=== PATIENT | male | born 1940 | race Caucasian/White ===

== ENCOUNTER 2017-07-21 14:50 | Emergency (ER) | payer MEDICAID, OTHER ==
[~2017-07-21] VITALS: Ht 152.4 cm; Wt 67.0 kg
[2017-07-21 14:54] VITALS: Ht 152.4 cm; Wt 67.0 kg
--- NOTE | 2017-07-21 17:19 | ERD ---
ER Documentation Chief Complaint Date/Time DATE: 07/21/17 TIME: 17:16 Chief Complaint left eye vision loss x 3 mos HPI 77-year-old male complains of blurry vision for the last 3 months in his right eye. He has a history of cataract surgery in his left eye. Denies any history of trauma, and denies any visual field deficits, pain, discomfort, fevers, vomiting, chest pain or shortness of breath or abdominal pain . ROS All systems reviewed and are negative except as per history of present illness. PMhx/Soc History of Surgery: No Anesthesia Reaction: No Hx Neurological Disorder: No Hx Respiratory Disorders: No Hx Cardiac Disorders: No Hx Psychiatric Problems: No Hx Miscellaneous Medical Probl: No Hx Alcohol Use: No Hx Substance Use: No Hx Tobacco Use: No Smoking Status: Never smoker Physical Exam Vitals Vital Signs Date Time Temp Pulse Resp B/P Pulse Ox O2 Delivery O2 Flow Rate FiO2 07/21/17 14:54 98.1 60 18 160/83 99 Physical Exam Const: []Alert, [id number], eating chips. Head: Atraumatic Eyes: Normal Conjunctiva. Eyes are PERRLA and extraocular movements intact. There is a visible opacity in the lens in the right eye. There is no proptosis, visual acuity is diminished in the affected eye. He is able to count fingers at 8 feet. ENT: Normal External Ears, Nose and Mouth. Neck: Full range of motion..~ No meningismus. Resp: Clear to auscultation bilaterally Cardio: Regular rate and rhythm, no murmurs Abd: Soft, non tender, non distended. Normal bowel sounds Skin: No petechiae or rashes Back: No midline or flank tenderness Ext: No cyanosis, or edema Neur: Awake and alert Psych: Normal Mood and Affect Procedures/MDM Patient presents with a 3 month history of blurred vision his right eye. Physical exam is likely cataract. Signs and symptoms do not suggest orbital cellulitis, retinal detachment, retinal artery ischemia, optic neuritis, acute glaucoma. Patient would be best served by an outpatient ophthalmology evaluation and also primary care. Patient will referred to ophthalmology and primary care for further evaluation treatment. Patient shows no signs or symptoms of emergent condition or emergent signs or symptoms of serious illness. Patient is advised to recheck for new or worsening symptoms with primary doctor and ophthalmology as directed. Departure Diagnosis: Primary Impression: Blurred vision, right eye Condition: Stable Patient Instructions: Blurred Vision [facility] Usted se moreno hecho un examen mdico de control que le indica que no est en misty condicin que requiera tratamiento urgente en el Departamento de Emergencia. Un estudio ms profundo y el tratamiento de titus condicin pueden esperar sin ningn riesgo hasta que usted sea atendida/o en el consultorio de titus mdico o misty cl kindra. Es responsabilidad suya arreglar misty israel para el seguimiento del grant. MANEJO DE CONDICIONES NO URGENTES EN EL FUTURO 1) Si usted tiene un mdico de atencin primaria: Usted debera llamar a titus mdico de atencin primaria antes de venir al departamento de emergencia. Despus de las horas de consultorio, titus doctor o titus asociado/a est disponible por telfono. El mdico o enfermero de josé miguel en el servicio telefnico puede asesorarle por yamileth medio para atender el problema, o grant contrario se puede programar misty israel. 2) Si usted no tiene un mdico de atencin primaria: Llame al mdico o clnica de referencia que aparece abajo will las horas de consultorio para hacer misty israel para que le vean. CLINICAS: [facility] [phone] [facility] [place] [phone] [facility] [phone] [facility] [phone] [facility] [phone] [facility] [phone] [address] [facility] Hours: Mon - Fri 9:00 AM - 5:00 PM Additional Instructions: Va al titus doctor/ specialista para mas evaluacon en el proximo semana. posiblemente necesita autorizado de titus doctor primario para specialista. Regresa para fiebre, o mas o nueva simptomas. LUCAS TIRADO MD Jul 21, 2017 17:19
== END 2017-07-21 17:58 | disposition home or self-care (01) ==
LOC: FTE 14:50
DX: H53.8 Other visual disturbances (principal)
CPT/HCPCS: 99282

== ENCOUNTER 2017-11-24 14:33 | Emergency (ER) | END 2017-11-24 21:46 | disposition home or self-care (01) ==